=== PATIENT | male | born 1990 | race Caucasian/White ===

== ENCOUNTER 2018-03-23 17:16 | Emergency (ER) | payer MEDICAID, OTHER ==
[~2018-03-23] VITALS: Ht 182.9 cm; Wt 65.5 kg
[2018-03-23 17:19] VITALS: BP 116/68
[2018-03-23] MEDS ORDERED: DEXAMETHASONE 4 MG/ML, 5ML ONE (18:21)
[2018-03-23] MEDS ORDERED: BICILLIN-LA 1,200,000 UNITS/2 ML IM ONE (18:30)
[2018-03-23] MEDS ORDERED: DEXAMETHASONE 4 MG/ML, 1ML IVPush ONE (19:00)
== END 2018-03-23 19:10 | disposition home or self-care (01) ==
LOC: ED 19:04
DX: J03.00 Acute streptococcal tonsillitis, unspecified (principal); R68.84 Jaw pain; F41.1 Generalized anxiety disorder; F32.9 Major depressive disorder, single episode, unspecified; F17.210 Nicotine dependence, cigarettes, uncomplicated
CPT/HCPCS: 71046; 87880; 96372; 96374; 99284; J0561; J1100